=== PATIENT | female | born 1980 | race Asian ===

== ENCOUNTER 2024-12-04 09:18 | Day surgery (SDC) | payer BC ==
[2024-12-04] MEDS ORDERED: dexAMETHasone sodium phosphate IJ ONE (09:19)
[2024-12-04] MEDS ORDERED: Sodium Chloride 0.9(Preservative Free) 10 ML IJ ONE (09:19)
[2024-12-04 10:14] LABS: HCG URINE TEST NEGATIVE (NEGATIVE)
[2024-12-04] MEDS ORDERED: propofoL IV ONE (11:27)
[2024-12-04] MEDS ORDERED: MORPHINE SULFATE 2 MG INJ ONE (11:42)
[2024-12-04] MEDS ORDERED: DILAUDID 0.5 MG/0.5 ML SYRINGE ONE (12:06)
[2024-12-04] MEDS ORDERED: Lactated Ringers 1,000 ML IV ONE (16:32)
--- NOTE | 2024-12-04 21:10 | XRAY ---
Indication: Right L4-S1 transforaminal DAREN. Intraoperative fluoroscopy provided for 19 seconds. 3 digital spot image submitted for interpretation demonstrates posterior needle tips projecting over expected right L4 and L5 nerve roots. Small amount of contrast injected for needle tip placement. Correlate with intraoperative findings/report.
--- NOTE | 2024-12-04 21:23 | XRAY ---
19 seconds of fluoroscopy was used in surgery for a right L4-S1 transforaminal DAREN.
== END 2024-12-04 12:35 | disposition home or self-care (01) ==
LOC: SDC-PAIN 09:18
PROVIDERS: ATTEND Psychiatry & Neurology Pain Medicine
DX: M54.16 Radiculopathy, lumbar region (principal); R73.03 Prediabetes
CPT/HCPCS: 64483; 64484; 72100; 81025; 82947; J1100; J1171; J2270; J2704; Q9966